=== PATIENT | male | born 1995 | race Caucasian/White ===

== ENCOUNTER 2017-12-02 02:19 | Emergency (ER) | payer OTHER ==
[~2017-12-02] VITALS: Ht 170.2 cm; Wt 63.5 kg
--- NOTE | 2017-12-02 02:34 | ED PSYCHIATRIC COMPLAINT ---
History of Present Illness General Chief Complaint: Psychiatric Related Complaint Stated Complaint: BIBA FOR EVAL +SI Source: patient, EMS Exam Limitations: no limitations Vital Signs & Intake/Output Vital Signs & Intake/Output Vital Signs Date Time Temp Pulse Resp B/P B/P Pulse O2 O2 Flow FiO2 Mean Ox Delivery Rate 12/02 0850 98.0 70 20 118/56 96 Room Air 12/02 0739 97.7 74 18 105/73 98 Room Air 12/02 0607 97.6 86 18 97/56 100 Room Air 12/02 0424 97.2 65 18 103/54 98 Room Air 12/02 0228 98 Room Air 12/02 0222 98.2 86 18 143/65 98 Room Air Allergies Coded Allergies: NO KNOWN ALLERGIES (03/21/11) Triage Note: PT BIBA FROM HOME C/O +SI THOUGHTS. PER PT, AN ARGUMENT STARTED BETWEEN HIM AND HIS GF, LEADING TO PT STATING TO ANOTHER FRIEND "THIS IS THE LAST TIME ILL WALK DOWN THIS STREET" PT DENIES -SI CURRENTLY ON ARRIVAL STATING "NO THAT WAS ONLY EARLIER. PTS PLAN WAS TO JUMP OFF OF BRIDGE. PT CALM AND COOPERATIVE, DR CALDERON AT BEDSIDE FOR EVAL. PTS VSS. PT WANDED AND CHANGED INTO BLUE SCRUBS. Triage Nurses Notes Reviewed? yes Onset: Abrupt Duration: hour(s): Timing: single episode today Severity: moderate Associated Symptoms: anxiety, suicidal ideation HPI: 22 YO gentleman h/o adhd presents via ambulance with suicidal ideation. "I have a complicated situation involving a girl... We were together, but I didn 't realize she had a boyfriend.... Anyway, I thought about jumping off a bridge... I put it out on my Instagram and someone must have called the police because they showed up at my house." He notes that he had the impulsive thought, but that he now denies SI/HI. He denies drugs/etoh use tonight. He is not under a police PEER, but hopes to speak with psyche. He is otherwise well. (Yumiko HUGHES,Errol Calderon) Past History Travel History Traveled to [place] past 21 day No Medical History Any Pertinent Medical History? see below for history Psychiatric: insomnia, ADD Surgical History Surgical History: none Psychosocial History What is your primary language [place] Tobacco Use: Quit >30 days ago ETOH Use: occasional use Illicit Drug Use: marijuana Family History Hx Contributory? No (Yumiko HUGHES,Errol Calderon) Review of Systems Review of Systems Constitutional: Reports: no symptoms. EENTM: Reports: no symptoms. Respiratory: Reports: no symptoms. Cardiovascular: Reports: no symptoms. GI: Reports: no symptoms. Genitourinary: Reports: no symptoms. Musculoskeletal: Reports: no symptoms. Skin: Reports: no symptoms. Neurological/Psychological: Reports: no symptoms. Hematologic/Endocrine: Reports: no symptoms. Immunologic/Allergic: Reports: no symptoms. All Other Systems: Reviewed and Negative (Yumiko HUGHES,Errol Calderon) Physical Exam Physical Exam General Appearance: well developed/nourished, mild distress Head: atraumatic Eyes: Bilateral: normal appearance. Ears, Nose, Throat: normal pharynx, normal ENT inspection, hearing grossly normal Neck: normal inspection, supple Respiratory: normal breath sounds Cardiovascular: regular rate/rhythm Gastrointestinal: soft, non-tender Extremities: normal range of motion Neurological/Psychiatric: no motor/sensory deficits, awake, calm, oriented x 3 Appearance/Memory/Insight: appropriate appearance, appropriate insight Behavoir/Eye Contact/Speech: cooperative Thoughts/Hallucinations: no apparent hallucination Skin: intact, normal color, warm/dry SAD PERSONS SAD PERSONS Response Value Male Sex? yes 1 Single//? yes 1 Social Support? has support 0 Total 2 SAD PERSONS Done? yes (Yumiko HUGHES,Errol Calderon) Progress Differential Diagnosis: depression, stress vs other. Plan of Care: Orders Procedure Date/time Status Regular Diet 12/03 B Active Continuous Observation Monitor 12/02 234 Active URINE DRUG SCREEN FOR ER ONLY 12/02 234 Complete ETHANOL 12/02 234 Complete COMPREHENSIVE METABOLIC PANEL 12/02 234 Complete CBC WITHOUT DIFFERENTIAL 12/02 234 Complete ED CRISIS PSYCH CONSULT 12/02 234 Active Laboratory Tests 12/02/17 0256: Serum Alcohol < 10.0 12/02/17 0256: Anion Gap 12, Estimated GFR > 60, BUN/Creatinine Ratio 12.2, Glucose 110 H, Calcium 9.4, Total Bilirubin 1.1, AST 22, ALT 19 L, Alkaline Phosphatase 47, Total Protein 7.8, Albumin 4.8, Globulin 3.0, Albumin/Globulin Ratio 1.6, CBC w Diff NO MAN DIFF REQ, RBC 4.50 L, MCV 90.4, MCH 30.1, MCHC 33.3, RDW 13.0, MPV 7.7, Gran % 74.2, Lymphocytes % 17.7 L, Monocytes % 6.8, Eosinophils % 0.6, Basophils % 0.7, Absolute Granulocytes 6.8 H, Absolute Lymphocytes 1.6, Absolute Monocytes 0.6, Absolute Eosinophils 0.1, Absolute Basophils 0.1, Urine Opiates Screen < 100, Methadone Screen < 40, Barbiturate Screen < 60, Ur Phencyclidine Scrn < 6.00, Amphetamines Screen < 100, U Benzodiazepines Scrn < 85, Urine Cocaine Screen < 50, Urine Cannabis Screen 8.00 Hand-Off Endorsed To: Velma HUGHES,Curtis Chester Endorsed Time: 0700 Pending: consult, labs (Yumiko HUGHES,Errol Calderon) Comments: 12/02/2017 10:54:00 AM patient 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 Cazares been evaluated by the crisis condition and felt to be stable for outpatient management. (Velma HUGHES,Curtis Chester) Departure Departure Condition: Stable Referrals: Angela HUGHES,David Chester Departure Forms: Customer Survey General Discharge Information (Yumiko HUGHES,Errol Calderon) Departure Disposition: HOME OR SELF CARE Clinical Impression Primary Impression: Depression Qualifiers: Depression Type: unspecified Qualified Code: F32.9 - Major depressive disorder, single episode, unspecified Secondary Impressions: Stress, Suicide ideation Additional Instructions: Please follow-up with your appointment on December 12 at 12:15 PM with the [facility] outpatient counseling clinic. Notify your primary care doctor of this emergency department visit and treatment plan. Return if any concerns or sudden worsening. (Velma HUGHES,Curtis Chester)
[2017-12-02 02:59] LABS: ABSOLUTE BASOPHIL COUNT 0.1 /CUMM (0.0-0.2); ABSOLUTE EOSINOPHIL COUNT 0.1 /CUMM (0.0-0.7); ABSOLUTE GRANULOCYTE CT 6.8 /CUMM (1.4-6.5); ABSOLUTE LYMPH COUNT 1.6 /CUMM (1.2-3.4); ABSOLUTE MONOCYTE COUNT 0.6 /CUMM (0.10-0.60); BASOPHIL % 0.7 % (0.0-2.0); EOSINOPHIL % 0.6 % (0-5); GRANULOCYTE % 74.2 % (42.2-75.2); HEMATOCRIT 40.7 % (42-52); MEAN CORPUSCULAR HGB 30.1 PG (27.0-31.0); MEAN CORPUSCULAR HGB CONC 33.3 G/DL (33.0-37.0); MEAN CORPUSCULAR VOLUME 90.4 FL (80.0-94.0); MEAN PLATELET VOLUME 7.7 FL (7.4-10.4); PLATELET COUNT 316 /CUMM (130-400); WHITE BLOOD CELL COUNT 9.2 /CUMM (4.8-10.8)
[2017-12-02 11:20] VITALS: BP 135/63
--- NOTE | 2017-12-02 12:16 | ED PSYCH CRISIS CONSULTATION ---
Crisis Consult Basic Assessment Date of Consult: 12/02/17 Responsible Person/Accompanied By: Self/mother Insurance Authorization: Insurance #1: Insurance name: TARA STEPHENSON Phone number: Policy number: [id number] Group number: Authorization number: ED Provider: Patient's ED Provider: Curtis Carreon MD Primary Care Physician: Patient's PCP: Patient Has No Primary Care Dr PCP's Phone Number: Current Psychiatrist: None Chief Complaint: Psychiatric Related Complaint Patient's Quote: "It's over a girl.She has a boyfriend.I was in a pissed mood". Present Illness: Pt is a 22 year old white male BIBA early this morning from his home. Pt explained that his girlfriend has been seeing her ex boyfriend. He was upset over learning this and posted a suicidal statement on social media. Pt stated that he posted that it would be the last time that he walked down his street. He also reached out by asking someone to talk to him so that he wouldn't "do something stupid". He stated that one of his best friends reached out to him and he met him to talk. Pt stated that he felt much better after meeting with his friend. However, when he got back home the police were there. Apparently someone who read his post called the police. Pt stated that he is not angry over the police involvement and sees it as someone was looking out for him. He also stated that he told his girlfriend that he doesn't want to see her for a week while he decides how to move forward with the relationship. Pt stated that he is not currently involved in any psychiatric or mental health treatment and is not on any psychotropic medications. Pt explained that when he was between the ages of [age] he was involved in counseling. He stated that he was diagnosed with ADD and had terrible problems with his anger. Mother also stated that the family was involved in [employer] through [employer] for approximately one year when pt was 15 years old. Pt denied any medical problems. Pt stated that he smokes marijuana and drinks beer approximately twice per month. His UDS was negative. Pt denied any history of substance abuse or treatment. Pt stated that his father when pt was 10 years old. Pt reported that father was a substance abuser. Apparently father overdosed and then drowned. Pt explained that it is uncertain as to wether or not the incident was a suicide. Pt stated that he has no history of significant suicidal or self injurious behavior. He did explain that he has a history of anger and aggressive behavior. He stated that he fought a lot between the ages of 12 and 15 years old. He explained that while in high school he had a teacher, Eliot Cheri, who ran anger management groups. He stated that the groups were life changing for him and helped him tremendously. Pt denied any history of or current homicidal ideations. Pt lives with his mother, 13 and 18 year old sisters. Pt and mother stated that mother and both sisters have a history of anxiety and depression. Pt expressed that his mother is extremely supportive and is a "great mother". 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 Pt stated that he was placed on suspension and eventually quit. He stated he was confused over the reasoning for suspension. Pt stated that he was also employed at [employer] for over a year in 2017. Pt stated that he feels "lazy" and doesn't have a car yet. He graduated high school and took a year off. He plans to start community college in the fall. Pt stated that his goal is to either be a police surgeon or a sporting platen builder up. Pt stated that he loves basketball and sports in general. He also had coached basketball in the past. Pt was alert and oriented. He was cooperative and receptive toward the evaluation process. Pt's thought process was clear. His speech girish and volume was wnl. There was no evidence of psychosis or thought disorder. Pt's mood was euthymic and hopeful but he described struggles with some depression. Pt and mother agree that there are some motivational problems as well. Pt stated that his sleep cycle is off at times. Pt stated that on some days he goes with little sleep and on others he sleeps for 12 or more hours. He stated that his appetite and energy level are good overall. Pt denied active suicidal or homicidal ideation/intentions. A C-SSRS was completed. Pt deneid any suicidal or self injurious behavior. He did admit to some suicidal thoughts yesterday but denied actual intentionsor clear plans. Pt does have a history of psychiatric treatment as a youth and is not currently involved in any treatment. Protective factors include pt's ability to identify reasons for living, his responsibilty to his family and his supportive family and friends. Pt was future oriented and goal directed. Case was reviewed with the position classifier psychiatrist. Pt's current needs meet an outpatient level of care which is recommended at this time. Pt and mother are in agreement with the plan for outpatient counseling. Clinician was able to secure an intake appointment with [facility] for December at 12:15 pm. Pt and mother understand how to call 211 or 911 if needed. Patient's Address: [address] [place] [address] Other Phone Number: Who Do You Live With? Family Family/Informants Interviewed: Mother, Camila Leonardo [phone] Allergies - Coded Allergies: NO KNOWN ALLERGIES (03/21/11) Laboratory Results: Laboratory Tests 12/02/17 0256: Serum Alcohol < 10.0 12/02/17 0256: Anion Gap 12, Estimated GFR > 60, BUN/Creatinine Ratio 12.2, Glucose 110 H, Calcium 9.4, Total Bilirubin 1.1, AST 22, ALT 19 L, Alkaline Phosphatase 47, Total Protein 7.8, Albumin 4.8, Globulin 3.0, Albumin/Globulin Ratio 1.6, CBC w Diff NO MAN DIFF REQ, RBC 4.50 L, MCV 90.4, MCH 30.1, MCHC 33.3, RDW 13.0, MPV 7.7, Gran % 74.2, Lymphocytes % 17.7 L, Monocytes % 6.8, Eosinophils % 0.6, Basophils % 0.7, Absolute Granulocytes 6.8 H, Absolute Lymphocytes 1.6, Absolute Monocytes 0.6, Absolute Eosinophils 0.1, Absolute Basophils 0.1, Urine Opiates Screen < 100, Methadone Screen < 40, Barbiturate Screen < 60, Ur Phencyclidine Scrn < 6.00, Amphetamines Screen < 100, U Benzodiazepines Scrn < 85, Urine Cocaine Screen < 50, Urine Cannabis Screen 8.00 Past History Past Medical History Psychiatric: insomnia, ADD Past Surgical History Surgical History: 1 Psychosocial History Strengths/Capabilities: Pt has decent insight and is motivated for treatment. Pt has a strong family and friend support system. Physical Limitations (Interventions): None reported. Psychiatric Treatment History Psych Treatment Psychiatric Treatment Yes Inpatient Treatment No Outpatient Treatment Yes Location of Treatment [facility] Reason for Treatment Anger/aggression as a youth Dates of Treatment ages [age] years old. Response to Treatment Mostly helpful. Diagnosis by History: ADD Substance Use/Abuse History Drug Use/Abuse 1 Substances Used/Abused Yes Substance Used/Abused Marijuana First Use Unknown Last Used Unknown How much used/taken Unknown How often Approximately twice per month. Route of use smoke Drug Use/Abuse 2 Substances Used/Abused Yes Substance Used/Abused Alcohol First Use Unknown Last Used Unknown How much used/taken Unknown How often Approximately twice per month. Substance Abuse Treatment Substance Abuse Treatment Past Substance Abuse [place] No Inpatient Treatment No Outpatient Treatment No Current Mental Status Mental Status Orientation: Person, Place, Situation Affect: WNL Speech: WNL Neuro-vegetative: Sleep Disturbance Appearance Appearance- Dress/Hygiene: Pt dressed in hospital scrubs. Hygiene appears wnl. Behaviors Thought Process: WNL Thought Content: WNL Memory: WNL Insight: Fair SI/HI Risk Assessment Past Suicidal Ideation/Attempts Yes Current Suicidal Ideation/Att No Past Homicidal Ideation/Att: No Current Homicidal Ideation/Attempts No Degree of Intent: None Risk Factors: age (under 24/over 65), history of Violence, male Lethality Ratin PTSD Checklist PTSD Done? patient declined ED Management Sitter: Yes Restraints: No DSM5/PS Stressors/Medical Prob Diagnosis' (DSM 5, Stressors, Medical): F32.9 Unspecified Depressive Disorder Current GAF: 45 Departure Disposition Psych Medical Clearance Date: 12/02/17 Medically Cleared at: 0945 Time Started: 0945 Time Ended: 1045 Psychiatrist Consulted: Gayle Morel MD Date Disposition Established: 12/02/17 Time Disposition Established: 1100 Plan for Disposition - Modality: Outpatient Facility: [facility] Follow-up Appt Date: 12/12/17 Follow-Up Appt Time: 1215 Rationale for Disposition: Case was reviewed with the position classifier psychiatrist. Pt's current needs meet an outpatient level of care which is recommended at this time. Pt and mother are in agreement with the plan for outpatient counseling. Clinician was able to secure an intake appointment with [facility] outpatient clinic for December at 12:15 pm. Pt and mother understand how to call 211 or 911 if needed. Referrals Patient Has No Primary Care (PCP/Family)
== END 2017-12-02 11:29 ==
LOC: ERH 02:19
PROVIDERS: Pediatrics
DX: F32.9 Major depressive disorder, single episode, unspecified (principal); F43.9 Reaction to severe stress, unspecified; R45.851 Suicidal ideations
CPT/HCPCS: 80307; G0463; G0480